=== PATIENT | female | born 2005 | race Caucasian/White ===

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

== ENCOUNTER 2024-04-03 15:57 | Emergency (ER) | payer SELFPAY ==
--- OUTSIDE RECORDS SUMMARY | 2024-04-03 16:01 | XMS REPORT | Continuity of Care Document ---
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 [id number] Col[address] Perdomo Results Test Description Test Time Test Comments Results Result Co mments Source
--- NOTE | 2024-04-03 18:15 | RAD REPORT ---
Exam:Wrist Left 3 View HISTORY: Left wrist pain FINDINGS: No fracture or dislocation seen. If the patient continues to have symptoms to suggest an occult fracture then follow-up x-ray in 7 day s would be recommended
--- NOTE | 2024-04-03 18:22 | ER ---
Nurse's Notes [facility] Name: Michelle Rosenthal Age: 19 yrs Sex: Female : 2005 Arrival Date: 04/03/2024 Time: 15:57 Bed 11 Private MD: Diagnosis: Contusion of left wrist Presentation: 04/03 16:26 Chief complaint: Patient states: I was going to the restroom at work and slammed my jb4 wrist into the host stand by accident. Coronavirus screen: At this time, the client does not indicate any symptoms associated with coronavirus-19. Ebola Screen: No symptoms or risks identified at this time. Initial Sepsis Screen: Does the patient meet any 2 criteria? HR > 90 bpm. Yes Does the patient have a suspected source of infection? No. Patient's initial sepsis screen is negative. Risk Assessment: Do you want to hurt yourself or someone else? Patient reports no desire to harm self or others. Onset of symptoms was April 03, 2024. Transition of care: patient was not received from another setting of care. 16:26 Method Of Arrival: Ambulatory jb4 16:26 Acuity: HARMAN 4 jb4 Triage Assessment: 16:28 General: Appears in no apparent distress. comfortable, Behavior is calm, cooperative, jb4 appropriate for age. Pain: Complains of pain in left wrist Pain does not radiate. Pain currently is 8 out of 10 on a pain scale. Neuro: Level of Consciousness is awake, alert, obeys commands, Oriented to person, place, time, situation. Cardiovascular: Patient's skin is warm and dry. Respiratory: Airway is patent Respiratory effort is even, unlabored, Respiratory pattern is regular, symmetrical. Derm: Skin is intact, Skin is pink, warm \T\ dry. Musculoskeletal: Circulation, motion, and sensation intact. Range of motion: intact in all extremities. 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 - Infectious Disease History:: Denies. - Social history:: Smoking status: Reported history of juuling and/or vaping. Vital Signs: 16:26 BP 122 / 81; Pulse 81; Resp 16; Temp 98.8(O); Pulse Ox 100% on R/A; Weight 80.74 kg jb4 (R); Height 5 ft. 4 in. (R); Pain 7/10; 16:26 Body Mass Index 30.55 (80.74 kg, 162.56 cm) jb4 16:26 Pain Scale: Adult jb4 ED Course: 16:00 Patient arrived in ED. mr 16:00 Kalpana Tena PA-C is PHCP. sb4 16:00 Clarke Santiago MD is Attending Physician. sb4 16:28 Triage completed. jb4 16:28 Arm band placed on right wrist. jb4 17:54 XRAY Wrist LEFT 3 view In Process Unspecified. EDMS 18:37 No provider procedures requiring assistance completed. Patient did not have IV access jl7 during this emergency room visit. Velcro wrist splint applied to left wrist. Administered Medications: 18:37 Drug: HYDROcodone-acetaminophen PO 5 mg-325 mg 1 tabs PO once Route: PO; jb4 18:37 Follow up: Response: Medication administered at discharge. jl7 Outcome: 18:21 Discharge ordered by MD. sb4 18:37 Discharged to home ambulatory, jl7 18:37 Condition: stable 18:37 Discharge instructions given to patient, Instructed on discharge instructions, follow up and referral plans. Demonstrated understanding of instructions, follow-up care, 19:13 Patient left the ED. jl7 Signatures: Dispatcher [employer] EDNE Laurel Vega, Jacek Read mr Jah Moody, RN RN jb4 Janelle Neely RN RN jl7 Kalpana Tena PA-C PA-C sb4
--- NOTE | 2024-04-03 18:22 | EDPHYS ---
Physician Documentation [facility] Name: Michelle Rosenthal Age: 19 yrs Sex: Female : 2005 Arrival Date: 04/03/2024 Time: 15:57 Bed 11 Private MD: ED Physician Clarke Santiago HPI: 04/03 17:16 This 19 yrs old Female presents to ER via Ambulatory with complaints of Wrist Injury. sb4 17:16 The patient or guardian reports injury, pain, swelling, tenderness. The complaints sb4 affect the left wrist diffusely. 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 Onset: The symptoms/episode began/occurred 2 hour(s) ago. Modifying factors: The symptoms are alleviated by holding still, the symptoms are aggravated by movement. Associated signs and symptoms: Pertinent negatives: cyanosis distally, decreased sensation distally, numbness distally, tingling distally. Compartment Syndrome. The patient has not experienced similar symptoms in the past. The patient has not recently seen a physician. 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 - Infectious Disease History:: Denies. - Social history:: Smoking status: Reported history of juuling and/or vaping. ROS: 17:16 Constitutional: Negative for fever, chills, and weight loss, sb4 17:16 MS/extremity: Positive for injury or acute deformity, pain, swelling, tenderness, of the left wrist, 17:16 All other systems are negative, Exam: 17:16 Hand exam: ROM: limited active range of motion, in the left wrist, limited passive sb4 range of motion due to pain, in the left wrist, Circulation is intact in all extremities. Pulses: are normal with no appreciated deficits, Perfusion: the extremity is cool, sensation intact. 17:16 Constitutional: This is a well developed, well nourished patient who is awake, alert, and in no acute distress. Head/Face: Normocephalic, atraumatic. Eyes: Extra-ocular motions intact. Periorbital areas with no swelling, redness, or edema. ENT: Mucous membranes moist. Respiratory: No increased work of breathing, no retractions or nasal flaring. Vital Signs: 16:26 BP 122 / 81; Pulse 81; Resp 16; Temp 98.8(O); Pulse Ox 100% on R/A; Weight 80.74 kg jb4 (R); Height 5 ft. 4 in. (R); Pain 7/10; 16:26 Body Mass Index 30.55 (80.74 kg, 162.56 cm) jb4 16:26 Pain Scale: Adult jb4 MDM: 16:10 Medical Screening Exam initiated sb4 18:20 Data reviewed: vital signs, nurses notes, radiologic studies, and as a result, I will sb4 discharge patient. Counseling: I had a detailed discussion with the patient and/or guardian regarding the historical points, exam findings, and any diagnostic results supporting the discharge/admit diagnosis, radiology results, the need for outpatient follow up, for definitive care, to return to the emergency department if symptoms worsen or persist or if there are any questions or concerns that arise at home. 04/03 16:32 Order name: XRAY Wrist LEFT 3 view; Complete Time: 18:20 jb4 04/03 18:20 Order name: Wrist Splint: preformed; Complete Time: 19:12 sb4 Administered Medications: 18:37 Drug: HYDROcodone-acetaminophen PO 5 mg-325 mg 1 tabs PO once Route: PO; jb4 18:37 Follow up: Response: Medication administered at discharge. jl7 Disposition Summary: 04/03/24 18:21 Discharge Ordered Notes: Location: Home sb4 Problem: new sb4 Symptoms: have improved sb4 Condition: Stable sb4 Diagnosis - Contusion of left wrist sb4 Followup: sb4 - With: Private Physician - When: As needed - Reason: Recheck today's complaints, Re-evaluation by your physician Discharge Instructions: - Discharge Summary Sheet sb4 - Contusion, [id number] sb4 - Wrist Pain, Adult, [id number] sb4 Forms: - Patient Portal Instructions sb4 - Leadership Thank You Letter sb4 Addendum: 04/06/2024 07:47 Co-signature as Attending Physician, Clarke Santiago MD I reviewed the patient's care r n provided by the Advanced Practice Provider and agree with the diagnosis and treatment plan. Signatures: Dispatcher [employer] Clarke Lange MD MD rn Jah Moody RN RN jb4 Kalpana Tena PA-C PA-C sb4 Janelle Neely RN jl7
[2024-04-03] MEDS ORDERED: HYDROCODONE/APAP 5/325 MG TAB ONE (18:25)
[2024-04-04 02:38] VITALS: BP 122/81; TEMP 98.8; O2SAT 100
== END 2024-04-03 19:13 | disposition home or self-care (01) ==
LOC: ER 15:57
DX: S60.212A Contusion of left wrist, initial encounter (principal); W22.8XXA Striking against or struck by other objects, initial encounter; Y99.0 Civilian activity done for income or pay; J45.909 Unspecified asthma, uncomplicated; F17.290 Nicotine dependence, other tobacco product, uncomplicated; Z91.018 Allergy to other foods; Z91.09 Other allergy status, other than to drugs and biological substances
CPT/HCPCS: 99283